=== PATIENT | female | born 1945 | race Caucasian/White ===

== ENCOUNTER 2019-02-07 02:52 | Inpatient (IN) | payer OTHER ==
[~2019-02-07] VITALS: Ht 167.6 cm; Wt 76.2 kg
[2019-02-07 03:08] VITALS: BP 120/73
[2019-02-07] MEDS ORDERED: BLOOD GLUCOSE MONITORING 1 DEV DEV FS STA (03:23)
[2019-02-07] MEDS ORDERED: NACL 0.9% 0 ML IV STA (03:23)
--- NOTE | 2019-02-07 03:32 | NUR ---
73 Y/O C/O SHARP LEFT SIDED, ACUTE PAIN RADIATING TO THE LEFT FLANK; ASSOCIATED WITH SHORTNESS OF BREATH, PT ALSO STATES CHILLS. PT DENIES ANY RECENT ILLNESS. PT DENIES N/V/D. A/OX3 AND FOLLOWS COMMANDS. BREATHING UNLABORED RR 24 ; 96% ON RA. ERMD MADE AWARE OF STATUS. SIDE RAILSX1. PLACED ON MONITOR. PMH: DM; HIGH CHOLESTEROL NKDA RX:LOSARTAN; LOVASTATIN; MELOXICAM; METFORMIN; GLIPIZIDE.
--- NOTE | 2019-02-07 03:34 | NUR ---
EKG PERFORMED AT BEDSIDE
--- NOTE | 2019-02-07 03:41 | NUR ---
Dr. Soliman examining patient.
--- NOTE | 2019-02-07 03:53 | NUR ---
X-Ray at bedside.
[2019-02-07 03:54] LABS: ANION GAP 12.9 (8-16); CARBON DIOXIDE 24.5 mmol/L (21-32); CHLORIDE 101 mmol/L (98-107); CREATININE 0.9 mg/dL (0.6-1.3); GLUCOSE 242 mg/dL (74-106); POTASSIUM 4.4 mmol/L (3.5-5.1); SODIUM SERUM 134 mmol/L (136-145); UREA NITROGEN, BLOOD 15 mg/dL (7-18)
[2019-02-07 04:01] LABS: ALBUMIN 3.9 g/dL (3.4-5.0); ASPARTATE AMINOTRANSFERASE 26 U/L (15-37); TOTAL BILIRUBIN 1.4 mg/dL (0.0-1.0)
[2019-02-07 04:06] LABS: BASOPHILS # (AUTO) 0.1 K/uL (0.00-0.22); BASOPHILS % (AUTO) 0.4 % (0.0-2.0); EOSINOPHILS # (AUTO) 0.1 K/uL (0-0.4); EOSINOPHILS % (AUTO) 0.2 % (0.0-4.0); HEMATOCRIT 42.3 % (36-48); HEMOGLOBIN 14.4 g/dL (12.0-16.0); LYMPHOCYTES # (AUTO) 1.6 K/uL (2.5-16.5); MEAN CORPUSCULAR HEMOGLOBIN 28 pg (27-31); MEAN CORPUSCULAR HGB CONC 34 g/dL (33-37); MEAN CORPUSCULAR VOLUME 83.4 fL (80-94); MONOCYTES # (AUTO) 0.7 K/uL (0.8-1.0); MONOCYTES % (AUTO) 3.1 % (1.7-9.3); NEUTROPHILS # (AUTO) 21.3 K/uL (1.8-7.7); NEUTROPHILS % (AUTO) 89.5 % (42.2-75.2); PLATELET COUNT (AUTO) 252 K/uL (140-450); RED BLOOD CELL COUNT(AUTO) 5.07 MIL/uL (4.20-5.40); RED CELL DISTRIBUTION WIDTH 13.7 % (11.6-13.7)
[2019-02-07 04:23] LABS: LYMPHOCYTES % (AUTO) 6.8 % (20.5-51.1); WHITE BLOOD COUNT (AUTO) 23.8 K/uL (4.8-10.8)
[2019-02-07 04:42] LABS: PROTHROMBIN TIME 9.4 secs (10.8-13.4)
--- NOTE | 2019-02-07 04:42 | NUR ---
PT TAKEN TO CT
--- NOTE | 2019-02-07 05:09 | NUR ---
PT RETURN FROM CT
[2019-02-07 06:12] LABS: APPEARANCE,URINE CLEAR (CLEAR); BILIRUBIN,URINE NEGATIVE (NEGATIVE); BLOOD, URINE NEGATIVE (NEGATIVE); COLOR,URINE YELLOW (YELLOW); LEUKOCYTE ESTERASE ,URINE NEGATIVE (NEGATIVE); NITRITE, URINE NEGATIVE (NEGATIVE); PH,URINE 5.5 (5.0-9.0); UGLUCOSE 3+ (NEGATIVE)
--- NOTE | 2019-02-07 06:12 | NUR ---
PATIENT IS QUIETLY SITTING IN BED; PAIN IS 7/10. NOTIFIED MD.
[2019-02-07] MEDS ORDERED: ACETAMINOPHEN 325 MG TAB PO ONE (06:15)
[2019-02-07] MEDS ORDERED: PIPERACILLIN/TAZOBACTAM 3.375 GM in DEXTROSE 5% 50 ML IV ONE (06:20)
[2019-02-07 06:23] LABS: RBC,URINE 0 /HPF (0-5); WBC,URINE 0 /HPF (0-5)
--- NOTE | 2019-02-07 06:51 | NUR ---
PT RETURN FROM CT
--- NOTE | 2019-02-07 07:14 | NUR ---
Pt report given to ANGELA DEL CASTILLO. Transfer of care at this time.
[2019-02-07] MEDS ORDERED: PIPERACILLIN/TAZOBACTAM 3.375 GM VIAL IV ONE (07:16)
[2019-02-07] MEDS ORDERED: LOVA40TA4 PO (07:26)
[2019-02-07] MEDS ORDERED: METF500T2 PO (07:26)
[2019-02-07] MEDS ORDERED: GLIP5TAB4 PO (07:26)
[2019-02-07] MEDS ORDERED: LOSA25TA43 PO (07:26)
[2019-02-07] MEDS ORDERED: NACL 0.9% 1,000 ML IV SCH (07:26)
--- NOTE | 2019-02-07 07:38 | NUR ---
PHLEB at bedside for blood draw.
--- NOTE | 2019-02-07 08:00 | NUR ---
Pt stable, denies pain, will continue to monitor closely.
[2019-02-07 08:13] LABS: GAMMA GLUTAMYL TRANSFERASE 112 U/L (7-51); MAGNESIUM 1.4 mg/dL (1.8-2.4)
[2019-02-07 08:14] LABS: AMYLASE 55 U/L (25-115); LIPASE 741 U/L (73-393)
[2019-02-07 08:43] LABS: ACETONE, SERUM NEGATIVE (NEGATIVE)
[2019-02-07] MEDS ORDERED: DEXTROSE 50% 50 ML SYR IVP PRN (11:15)
[2019-02-07] MEDS ORDERED: HYDROcodone/APAP 5/325 MG 1 TAB TAB PO PRN (11:20)
[2019-02-07] MEDS ORDERED: ONDANSETRON 4 MG/2 ML VIAL IVP PRN (11:20)
[2019-02-07] MEDS ORDERED: ALBUTEROL 0.083% 2.5 MG/3 ML NEBU IH PRN (11:20)
[2019-02-07] MEDS ORDERED: ACETAMINOPHEN 325 MG TAB PO PRN (11:20)
[2019-02-07] MEDS ORDERED: MORPHINE SULFATE 4 MG/ML SYR IVP PRN (11:20)
[2019-02-07] MEDS ORDERED: MAG SULF 2000 MG/WATER PREMIX 50 ML IV SCH (12:00)
[2019-02-07 12:10] VITALS: BP 135/63
--- NOTE | 2019-02-07 12:10 | NUR ---
RECEIVED PT VIA GURNEY FROM ER NURSE, PT IS AWAKE AND ALERT AND AMBULATED TO THE BED, PERIPHERAL LINE ON THE RT AC G. 20 ON SALINE LOCK, PT WAS GIVEN 2L BOLUS OF NS IN ER PER ENDORSEMENT, PT DENIES PAIN, ON STRICT INPUT AND OUTPUT, NPO EXCEPT MEDS FOR THE HIDA SCAN AND NO SIGN OF DISTRESS NOTED, WILL CONTINUE TO MONITOR PT.
--- NOTE | 2019-02-07 12:11 | NUR ---
Pt report given to Nurys MILLER at bedside in Tele room 107A. Transfer of care at this time.VSS.
--- NOTE | 2019-02-07 12:15 | NUR ---
MRSA SWAB DONE TO PT NOW AND SAMPLE WAS SENT TO ,LAB.
[2019-02-07] MEDS: DEXT 5% /NACL 0.9% 1,000 ML IV SCH (13:08)
--- NOTE | 2019-02-07 13:08 | NUR ---
PT WAS STARTED ON IVF OF D5NS AT 75ML/HR.
[2019-02-07] MEDS: BLOOD GLUCOSE MONITORING 1 DEV DEV FS SCH ×3 (13:26→20:34)
--- NOTE | 2019-02-07 13:26 | NUR ---
PT'S BLOOD GLUCOSE WAS CHECKED AND RESULT IS 146 AND NO INSULIN COVERAGE NEEDED.
[2019-02-07] MEDS: PIPERACILLIN/TAZOBACTAM 3.375 GM in DEXTROSE 5% 50 ML IV SCH ×2 (13:30→20:22)
--- NOTE | 2019-02-07 13:30 | NUR ---
IV ZOSYN WAS STARTED TO PT NOW.
--- NOTE | 2019-02-07 14:23 | NUR ---
PT WAS GIVEN 2GM MAGNESIUM IV NOW FOR THE MG LEVEL OF 1.4, WILL MONITOR PT.
[2019-02-07 16:00] VITALS: BP 130/72
--- NOTE | 2019-02-07 16:25 | NUR ---
PT, BLOOD GLUCOSE WAS CHECKED NOW AND RESULT IS 136, NO INSULIN COVERAGE NEEDED AND LEFT THE ROOM WITH EDELMIRA FOR THE HIDA SCAN.
--- NOTE | 2019-02-07 17:55 | NUR ---
PT IS BACK TO THE ROOM NOW FROM THE HIDA SCAN.
--- NOTE | 2019-02-07 18:18 | NUR ---
DR. COOPER WAS INFORMED THAT PT'S HIDA SCAN WAS FINISHED AND WAS ASKED IF PT CAN EAT AND DR. COOPER SAID THAT PT CAN EAT NOW.
--- NOTE | 2019-02-07 19:23 | NUR ---
ENDORSED PT TO SURFACE GRINDER TENDER NURSEMARY FOR CONTINUITY OF CARE
--- NOTE | 2019-02-07 19:25 | NUR ---
REPORT FROM AM RN RECEIVED WITH PT. SITTING UP EATING AND FAMILY MEMBERS AROUND VISITING. NO COMPLAINTS OF ANY PAIN AT THIS TIME. CALL LIGHT WITH IN REACH. NO SOB. IVF SITE INTACT AND NO S/S OF INFILTRATION. CARE PLANS FOR THE NIGHT DISCUSSED WITH THEM. DX. OF ACUTE CHOLECYSTITIS AND PANCREATITIS.
[2019-02-07 19:55] VITALS: BP 127/64
[2019-02-07] MEDS: INSULIN LISPRO SLIDING SCALE 100 UNITS/ML VIAL SUBQ PRN (20:23)
--- NOTE | 2019-02-07 20:41 | NUR ---
RECEIVED PATIENT ON ROOM AIR, PULSE OX SAT 97%. NO SOB NOTED. PRN HHN NOT INDICATED. PATIENT MADE AWARE OF MEDICATION USE AND FREQUENCY. NO RESPIRATORY DISTRESS NOTED. WILL CONTINUE TO MONITOR.
[2019-02-08] MEDS: DEXT 5% /NACL 0.9% 1,000 ML IV SCH ×2 (00:11→12:00)
[2019-02-08 00:15] VITALS: BP 128/72
--- NOTE | 2019-02-08 00:41 | NUR ---
PT. SLEEPING AT THIS TIME. NO RESTLESSNESS. NO COMPLAINTS DONE SINCE START OF SHIFT.
--- NOTE | 2019-02-08 03:11 | NUR ---
SLEEPING. NO RESTLESSNESS. TELEMETRY MONITORING. CALL LIGHT WITH IN REACH AT ALL TIMES.
[2019-02-08 04:29] VITALS: BP 126/54
[2019-02-08] MEDS: BLOOD GLUCOSE MONITORING 1 DEV DEV FS SCH ×2 (05:14→11:32)
[2019-02-08] MEDS: INSULIN LISPRO SLIDING SCALE 100 UNITS/ML VIAL SUBQ PRN ×2 (05:15→12:03)
[2019-02-08] MEDS: PIPERACILLIN/TAZOBACTAM 3.375 GM in DEXTROSE 5% 50 ML IV SCH ×2 (05:18→12:10)
--- NOTE | 2019-02-08 05:22 | NUR ---
AWAKE AND ALERT. ABLE TO VERBALIZE WELL. PT. STANDING UP AND BRUSHING TEETH BY HERSELF. NO COMPLAINTS OF A [place] PAIN DONE. GOOD AFFECT. TELEMETRY MONITORING. CALL LIGHT WITH IN REACH.
--- NOTE | 2019-02-08 05:44 | NUR ---
Late entry. COnfirmed with RN that Zosyn infused from 10 to 10:30 IVPB
--- NOTE | 2019-02-08 06:27 | NUR ---
PT. SLEEPING AT THIS TIME. NO COMPLAINTS OF ANY PAIN WITH IN THIS SHIFT. NO NAUSEA OR VOMITING NOTED. TELEMETRY MONITORING. CALL LIGHT WITH IN REACH. NOTED PT. INDEPENDENT AND PREFERS TO AMBULATE BY HERSELF. ROM X 4. A/O X 4. WILL ENDORSE TO AM RN FOR CONTINUITY OF CARE.
--- NOTE | 2019-02-08 07:05 | NUR ---
RECEIVED REPORT FROM CLINICAL SERVICES MANAGER NURSE. PT AAOX4, NO C/O PAIN AT THIS TIME. PT ON INSURANCE CHECKER. IV ON RT AC 20 GA RUNNING IVF PER ORDER. ABD SOFT, ACTIVE BS, LBM 02/07. SKIN IS INTACT, WARM TO TOUCH. SAFETY MEASURES IN PLACE, CALL LIGHT WITHIN REACH. REVIEWED POC WITH PT, PT VERBALIZED UNDERSTANDING.
[2019-02-08 07:39] LABS: BASOPHILS # (AUTO) 0.1 K/uL (0.00-0.22); BASOPHILS % (AUTO) 1.3 % (0.0-2.0); EOSINOPHILS # (AUTO) 0.2 K/uL (0-0.4); EOSINOPHILS % (AUTO) 3.1 % (0.0-4.0); HEMATOCRIT 38.7 % (36-48); LYMPHOCYTES # (AUTO) 1.7 K/uL (2.5-16.5); LYMPHOCYTES % (AUTO) 27.6 % (20.5-51.1); MEAN CORPUSCULAR HEMOGLOBIN 28 pg (27-31); MEAN CORPUSCULAR HGB CONC 34 g/dL (33-37); MEAN CORPUSCULAR VOLUME 84.5 fL (80-94); MONOCYTES # (AUTO) 0.3 K/uL (0.8-1.0); MONOCYTES % (AUTO) 4.8 % (1.7-9.3); NEUTROPHILS # (AUTO) 3.9 K/uL (1.8-7.7); NEUTROPHILS % (AUTO) 63.2 % (42.2-75.2); PLATELET COUNT (AUTO) 226 K/uL (140-450); RED BLOOD CELL COUNT(AUTO) 4.58 MIL/uL (4.20-5.40); RED CELL DISTRIBUTION WIDTH 13.7 % (11.6-13.7); WHITE BLOOD COUNT (AUTO) 6.1 K/uL (4.8-10.8)
[2019-02-08 08:00] VITALS: BP 128/66
[2019-02-08 08:07] LABS: MAGNESIUM 2.1 mg/dL (1.8-2.4); PHOSPHORUS 2.4 mg/dL (2.5-4.9)
[2019-02-08 08:11] LABS: ALBUMIN 3.4 g/dL (3.4-5.0); ASPARTATE AMINOTRANSFERASE 23 U/L (15-37); CHLORIDE 107 mmol/L (98-107); CREATININE 0.7 mg/dL (0.6-1.3); GLUCOSE 219 mg/dL (74-106); SODIUM SERUM 142 mmol/L (136-145); TOTAL BILIRUBIN 1.4 mg/dL (0.0-1.0); UREA NITROGEN, BLOOD 8 mg/dL (7-18)
[2019-02-08 08:13] LABS: CHOL/HDL RATIO 3.2 (1-4.5)
--- NOTE | 2019-02-08 08:28 | NUR ---
PT'S DELGADO/SISTER AT BEDSIDE. PT IS CONVERSATIONAL, NO SIGNS OF DISTRESS AT THIS TIME.
--- NOTE | 2019-02-08 08:32 | NUR ---
PATIENT HAS BEEN SCREENED AND CATEGORIZED MODERATE NUTRITION RISK. PATIENT WILL BE SEEN WITHIN 3-5 DAYS OF ADMISSION. 02/09/19 02/11/[address]
[2019-02-08] MEDS ORDERED: HYDROCORTISONE 1% CRM 30 GM TUBE TP SCH (09:00)
--- NOTE | 2019-02-08 10:14 | NUR ---
APPLIED HYDROCORTISONE CREAM TO BILATERAL LEGS. PT HAS NO SIGNS OF DISTRESS AT THIS TIME.
--- NOTE | 2019-02-08 10:26 | NUR ---
Met with patient and made appointment with PCP Dr. Hernandez [phone] February 14, at 11:15 am. will inform the patient.
[2019-02-08 12:00] VITALS: BP 124/58
--- NOTE | 2019-02-08 12:10 | NUR ---
ADMINISTERED ZOSYN PER ORDER, PT IS AWARE OF INDICATIONS AND POTENTIAL SIDE EFFECTS OF MEDICATION. PT VOIDED 300 ML OF CLEAR AND YELLOW URINE. PT HAS NO SIGNS OF DISTRESS AT THIS TIME.
[2019-02-08] MEDS ORDERED: ACET-9525 PO (13:36)
--- NOTE | 2019-02-08 13:55 | NUR ---
PT HAS BEEN DISCHARGED. ALL PAPERWORK SIGNED, ALL QUESTIONS ANSWERED. ALL BELONGINGS AND PRESCRIPTIONS IN PT POSSESSION. IV DISCONTINUED WITH CANNULA INTACT. WRISTBANDS AND TELE MONITOR REMOVED. PT REFUSED WHEELCHAIR, TRANSFERRED OUT OF UNIT WITH STEADY GAIT, SISTER AT SIDE. PT IS IN STABLE CONDITION.
--- NOTE | 2019-02-08 14:05 | NUR ---
Railway Signal Technician Note: I attempted to conduct assessment. However, patient was already discharged.
--- NOTE | 2019-02-11 12:52 | NUR ---
Late entry. COnfirmed with RN that 0.9 NS IV 1000ml started at 1035 and completed at 1135
== END 2019-02-08 15:55 | disposition home or self-care (01) | DRG 444 ==
LOC: MED 02:52 → MTU 11:19
PROVIDERS: ADMIT Internal Medicine Pulmonary Disease; ATTEND Internal Medicine Pulmonary Disease
DX: K80.00 Calculus of gallbladder with acute cholecystitis without obstruction (principal); K85.10 Biliary acute pancreatitis without necrosis or infection; R65.10 Systemic inflammatory response syndrome (SIRS) of non-infectious origin without acute organ dysfunction; E86.9 Volume depletion, unspecified; E11.9 Type 2 diabetes mellitus without complications; E78.00 Pure hypercholesterolemia, unspecified; E78.5 Hyperlipidemia, unspecified; I10 Essential (primary) hypertension; K82.8 Other specified diseases of gallbladder
CPT/HCPCS: 36415; 71045; 71275; 76705; 78445; 80053; 81001; 82009; 82150; 82948; 82977; 83036; 83605; 83690; 83735; 83880; 84100; 84484; 85025; 85379; 85610; 85730; 87040; 87081; 87086; 93005; 96361; 96365; 99285; J1815; J2543; J3475; J7042; J7060; Q0092; Q9967